=== PATIENT | female | born 1975 ===

== ENCOUNTER → 2025-06-20 | Day surgery (SDC) | payer OTHER ==
[2025-06-13 08:48] VITALS: BMI 41.5
[~2025-06-20] MED LIST: PHENYLEPHRINE-NS 100 MCG/ML 10 ML SYRINGE ONE; PROPOFOL 40 ML ONE
== END ==
LOC: CSHSDC 08:09
PROVIDERS: ATTEND Surgery
PROC: 0DBG8ZZ Excision of Left Large Intestine, Via Natural or Artificial Opening Endoscopic (ICD-10-PCS; principal; 2025-06-20)
DX: Z12.11 Encounter for screening for malignant neoplasm of colon (principal); K51.40 Inflammatory polyps of colon without complications; K64.4 Residual hemorrhoidal skin tags; K64.0 First degree hemorrhoids; C90.00 Multiple myeloma not having achieved remission; E66.01 Morbid (severe) obesity due to excess calories; Z68.41 Body mass index [BMI] 40.0-44.9, adult; Z90.49 Acquired absence of other specified parts of digestive tract; Z90.89 Acquired absence of other organs
CPT/HCPCS: 88305; J2704